=== PATIENT | male | born 1945 | race Caucasian/White ===

== ENCOUNTER → 2020-06-08 10:35 | Outpatient (BNVA) | payer MEDICARE, OTHER, SELFPAY | PROVIDERS: PCP Internal Medicine; Referring Provider Internal Medicine; Visit Provider Nurse Practitioner Family | DX: G90.521 Complex regional pain syndrome I of right lower limb (principal) | CPT/HCPCS: 99212 ==

== ENCOUNTER 2023-05-30 07:48 | Outpatient (REF) | payer MEDICARE, OTHER, SELFPAY ==
[2023-05-30 07:55] LABS: MANUAL DIFF FLAG NO
[2023-05-30 08:22] LABS: Basophils Percent Auto 0.5 % (0-2); Eosinophils Absolute Auto 0.2 X10*3/uL (0.0-0.4); Eosinophils Percent Auto 2.1 % (0-4); Hematocrit 35.6 % (42.0-52.0); Hemoglobin 11.6 g/dl (14.0-18.0); Imm Gran Abs Auto 0.04 X10*3/uL (0.00-0.03); Imm Gran Pct Auto 0.5 % (0.0-0.4); Lymphocytes Absolute Auto 2.4 X10*3/uL (1.2-4.9); Lymphocytes Percent Auto 27.4 % (20-40); Mean Corpuscular HGB Conc 32.6 g/dl (31.0-36.0); Mean Corpuscular Hemoglobin 29.7 pg (27.0-33.0); Mean Corpuscular Volume 91.3 fL (80.0-98.0); Mean Platelet Volume 10.6 fL (9.4-12.4); Monocytes Absolute Auto 0.7 X10*3/uL (0.1-1.2); Monocytes Percent Auto 8.2 % (2-11); Neutrophils Absolute Auto 5.4 x10*3/uL (2.0-8.3); Neutrophils Percent Auto 61.3 % (45-73); Platelet Count 206 X10*3/uL (160-400); Red Cell Distribution Width 14.3 % (11.0-16.0); White Blood Count 8.8 X10*3/uL (4.8-10.8)
[2023-05-30 08:32] LABS: Estimated Average Glucose 209 mg/dL; Hemoglobin A1c % 8.9 % (<6.0)
[2023-05-30 09:00] LABS: Alanine Aminotransferase 14 U/L (0-40); Albumin Level 3.9 g/dL (3.5-5.0); Alkaline Phosphatase 65 U/L (39-117); Anion Gap 16 (12-20); Aspartate Amino Transferase 16 U/L (5-37); Bilirubin Total 0.6 mg/dL (0.0-1.0); Blood Urea Nitrogen 16 mg/dL (9-16); Calcium 9.7 mg/dL (8.4-10.2); Carbon Dioxide 27 mmol/L (22-29); Chloride 99 mmol/L (96-108); Cholesterol 191 mg/dL (<200); Estimated Glomerular Filt Rate > 60; Glucose Fasting 295 mg/dL (60-99); HDL Cholesterol 31 mg/dL (>40); Sodium 138 mmol/L (135-145); Total Protein 6.9 g/dL (6.5-8.0); Triglycerides 797 mg/dL (<150); Uric Acid 2.9 mg/dL (3.4-7.0)
[2023-05-30 09:07] LABS: Thyroid Stimulating Hormone 1.94 uIU/mL (0.32-4.0); Vitamin D 25-OH Total 27.5 ng/mL (>30)
[2023-05-30 09:15] LABS: Vitamin B12 258 pg/mL (200-900)
[2023-05-30 09:56] LABS: Folate 5.1 ng/mL (> or = 4.0)
[2023-06-02 05:13] LABS: TS Negative Control Passed; TS Panel A 0; TS Panel B 0; TS Positive Control Passed; TSpotTB Negative (Negative)
== END 2023-05-30 07:49 | disposition home or self-care (01) ==
LOC: HO.HSH4W 07:48
PROVIDERS: Visit Provider Internal Medicine
DX: E11.22 Type 2 diabetes mellitus with diabetic chronic kidney disease (principal); N18.9 Chronic kidney disease, unspecified; F32.A Depression, unspecified; E55.9 Vitamin D deficiency, unspecified
CPT/HCPCS: 36415; 80053; 80061; 82306; 82607; 82746; 83036; 84443; 84550; 85025; 86481

== ENCOUNTER 2023-06-06 06:49 | Outpatient (REF) | payer MEDICARE, OTHER, SELFPAY ==
[2023-06-06 07:33] LABS: Cholesterol 198 mg/dL (<200); HDL Cholesterol 47 mg/dL (>40); LDL Cholesterol Calculated 127 mg/dL (<100); Triglycerides 121 mg/dL (<150)
== END 2023-06-06 06:50 | disposition home or self-care (01) ==
LOC: HO.HSH4W 06:49
PROVIDERS: Visit Provider Internal Medicine
DX: E11.9 Type 2 diabetes mellitus without complications (principal); E78.5 Hyperlipidemia, unspecified
CPT/HCPCS: 36415; 80061

== ENCOUNTER 2023-06-25 13:55 | Outpatient (REF) | payer MEDICARE, OTHER, SELFPAY ==
[2023-06-25 13:59] LABS: MANUAL DIFF FLAG NO
[2023-06-25 14:04] LABS: Basophils Percent Auto 0.3 % (0-2); Eosinophils Absolute Auto 0.1 X10*3/uL (0.0-0.4); Eosinophils Percent Auto 1.5 % (0-4); Hematocrit 38.8 % (42.0-52.0); Hemoglobin 12.8 g/dl (14.0-18.0); Imm Gran Abs Auto 0.02 X10*3/uL (0.00-0.03); Imm Gran Pct Auto 0.2 % (0.0-0.4); Lymphocytes Absolute Auto 2.2 X10*3/uL (1.2-4.9); Lymphocytes Percent Auto 24.4 % (20-40); Mean Corpuscular Hemoglobin 29.1 pg (27.0-33.0); Mean Corpuscular Volume 88.2 fL (80.0-98.0); Mean Platelet Volume 11.1 fL (9.4-12.4); Monocytes Absolute Auto 0.6 X10*3/uL (0.1-1.2); Monocytes Percent Auto 6.3 % (2-11); Neutrophils Absolute Auto 6.1 x10*3/uL (2.0-8.3); Neutrophils Percent Auto 67.3 % (45-73); Platelet Count 212 X10*3/uL (160-400); Red Cell Distribution Width 13.7 % (11.0-16.0); White Blood Count 9.1 X10*3/uL (4.8-10.8)
== END 2023-06-25 13:56 | disposition home or self-care (01) ==
LOC: HO.HSH4W 13:55
PROVIDERS: Visit Provider Internal Medicine
DX: J02.9 Acute pharyngitis, unspecified (principal); D64.9 Anemia, unspecified
CPT/HCPCS: 36415; 85025; 87070

== ENCOUNTER 2023-06-26 06:24 | Outpatient (REF) | payer MEDICARE, OTHER, SELFPAY | END 2023-06-26 06:25 | disposition home or self-care (01) | LOC: HO.HSH4W 06:24 | PROVIDERS: Visit Provider Internal Medicine | DX: J02.9 Acute pharyngitis, unspecified (principal) | CPT/HCPCS: 87651 ==

== ENCOUNTER 2023-06-27 10:06 | Outpatient (REF) | payer MEDICARE, OTHER, SELFPAY | END 2023-06-27 10:07 | disposition home or self-care (01) | LOC: HO.HSH4W 10:06 | PROVIDERS: Visit Provider Internal Medicine | DX: J02.9 Acute pharyngitis, unspecified (principal); D64.9 Anemia, unspecified | CPT/HCPCS: 36415; 80053; 85025 ==

== ENCOUNTER 2023-06-28 05:28 | Outpatient (REF) | payer MEDICARE, OTHER, SELFPAY | END 2023-06-28 05:29 | disposition home or self-care (01) | LOC: HO.HSH4W 05:28 | PROVIDERS: Visit Provider Internal Medicine | DX: J02.9 Acute pharyngitis, unspecified (principal) | CPT/HCPCS: 36415; 85652; 86308 ==

== ENCOUNTER 2023-07-04 11:33 | Outpatient (REF) | payer MEDICARE, OTHER, SELFPAY ==
[2023-07-04 11:36] LABS: MANUAL DIFF FLAG NO
[2023-07-04 11:55] LABS: Basophils Absolute Auto 0.1 X10*3/uL (0.0-0.2); Basophils Percent Auto 0.5 % (0-2); Eosinophils Absolute Auto 0.1 X10*3/uL (0.0-0.4); Eosinophils Percent Auto 0.6 % (0-4); Hematocrit 40.7 % (42.0-52.0); Hemoglobin 13.3 g/dl (14.0-18.0); Imm Gran Abs Auto 0.13 X10*3/uL (0.00-0.03); Lymphocytes Absolute Auto 3.4 X10*3/uL (1.2-4.9); Lymphocytes Percent Auto 26.4 % (20-40); Mean Corpuscular HGB Conc 32.7 g/dl (31.0-36.0); Mean Corpuscular Hemoglobin 29.2 pg (27.0-33.0); Mean Corpuscular Volume 89.3 fL (80.0-98.0); Mean Platelet Volume 11.4 fL (9.4-12.4); Monocytes Absolute Auto 1.2 X10*3/uL (0.1-1.2); Monocytes Percent Auto 9.1 % (2-11); Neutrophils Absolute Auto 8.1 x10*3/uL (2.0-8.3); Neutrophils Percent Auto 62.4 % (45-73); Platelet Count 310 X10*3/uL (160-400); Red Blood Count 4.56 X10*6/uL (4.60-5.80); Red Cell Distribution Width 13.6 % (11.0-16.0); White Blood Count 12.9 X10*3/uL (4.8-10.8)
[2023-07-04 12:21] LABS: Erythrocyte Sedimentation Rate 83 MM/HR (0-15)
[2023-07-05 13:11] LABS: C Reactive Protein 11.23 mg/dL (< or = 0.50)
== END 2023-07-04 11:34 | disposition home or self-care (01) ==
LOC: HO.HSH4W 11:33
PROVIDERS: Visit Provider Internal Medicine
DX: M54.2 Cervicalgia (principal); M79.10 Myalgia, unspecified site; J02.9 Acute pharyngitis, unspecified
CPT/HCPCS: 36415; 82550; 85025; 85652; 86140

== ENCOUNTER 2023-07-10 05:01 | Outpatient (REF) | payer MEDICARE, OTHER, SELFPAY ==
[2023-07-10 06:39] LABS: INTERNATIONAL NORM RATIO 0.9 (0.9-1.1); Prothrombin Time 11.3 SEC (11.1-13.3)
[2023-07-10 06:42] LABS: Partial Thromboplastin Time 36.3 SEC (26.0-36.4)
[2023-07-10 06:50] LABS: Prostate Specific Antigen 1.17 ng/mL (<0.05-4.0)
[2023-07-15 08:19] LABS: Methylmalonic Acid 152 nmol/L (87-318)
[2023-07-15 18:13] LABS: Homocysteine 14.9 umol/L (<11.4)
== END 2023-07-10 05:02 | disposition home or self-care (01) ==
LOC: HO.HSH4W 05:01
PROVIDERS: Visit Provider Internal Medicine
DX: R97.20 Elevated prostate specific antigen [PSA] (principal); K76.9 Liver disease, unspecified; E53.8 Deficiency of other specified B group vitamins; Z12.5 Encounter for screening for malignant neoplasm of prostate
CPT/HCPCS: 36415; 83090; 83921; 84153; 85610; 85730

== ENCOUNTER 2024-01-01 06:58 | Outpatient (REF) | payer MEDICARE, OTHER, SELFPAY ==
[2024-01-01 07:06] LABS: MANUAL DIFF FLAG NO
[2024-01-01 07:35] LABS: Basophils Percent Auto 0.4 % (0-2); Eosinophils Absolute Auto 0.1 X10*3/uL (0.0-0.4); Eosinophils Percent Auto 1.4 % (0-4); Hematocrit 37.9 % (42.0-52.0); Hemoglobin 12.8 g/dl (14.0-18.0); Imm Gran Abs Auto 0.05 X10*3/uL (0.00-0.03); Imm Gran Pct Auto 0.5 % (0.0-0.4); Lymphocytes Absolute Auto 2.8 X10*3/uL (1.2-4.9); Lymphocytes Percent Auto 28.5 % (20-40); Mean Corpuscular HGB Conc 33.8 g/dl (31.0-36.0); Mean Corpuscular Hemoglobin 30.6 pg (27.0-33.0); Mean Corpuscular Volume 90.7 fL (80.0-98.0); Mean Platelet Volume 11.2 fL (9.4-12.4); Monocytes Absolute Auto 0.8 X10*3/uL (0.1-1.2); Monocytes Percent Auto 7.7 % (2-11); Neutrophils Percent Auto 61.5 % (45-73); Platelet Count 201 X10*3/uL (160-400); Red Blood Count 4.18 X10*6/uL (4.60-5.80); Red Cell Distribution Width 14.4 % (11.0-16.0); White Blood Count 9.8 X10*3/uL (4.8-10.8)
[2024-01-01 07:49] LABS: Estimated Average Glucose 200 mg/dL; Hemoglobin A1c % 8.6 % (<6.0)
[2024-01-01 07:57] LABS: Alanine Aminotransferase 11 U/L (0-40); Alkaline Phosphatase 91 U/L (39-117); Anion Gap 16 (12-20); Aspartate Amino Transferase 14 U/L (5-37); Bilirubin Total 0.3 mg/dL (0.0-1.0); Blood Urea Nitrogen 30 mg/dL (9-16); Calcium 10.1 mg/dL (8.4-10.2); Carbon Dioxide 23 mmol/L (22-29); Chloride 105 mmol/L (96-108); Estimated Glomerular Filt Rate > 60; Glucose Random 200 mg/dL (60-115); Iron 50 mcg/dL (45-160); Percent Iron Saturation 16 % (15-50); Potassium 4.9 mmol/L (3.3-5.1); Sodium 139 mmol/L (135-145); Total Iron Binding Capacity 305 mcg/dL (228-428); Total Protein 6.8 g/dL (6.5-8.0); Unsaturated Iron Binding 255 ug/dL
[2024-01-01 08:14] LABS: Ferritin 58 ng/mL (20-250)
[2024-01-01 08:25] LABS: Folate 10.7 ng/mL (> or = 4.0); Vitamin B12 353 pg/mL (200-900)
[2024-01-06 23:19] LABS: PES - Abn Protein Band 1 <0.2 g/dL (NONE DETECTED); Prot Elec - Albumin 3.7 g/dL (3.8-4.8); Prot Elec - Alpha1 0.3 g/dL (0.2-0.3); Prot Elec - Alpha2 0.9 g/dL (0.5-0.9); Prot Elec - Beta 1 0.4 g/dL (0.4-0.6); Prot Elec - Beta 2 0.4 g/dL (0.2-0.5); Prot Elec - Gamma 0.6 g/dL (0.8-1.7); Prot Elec - Total Protein 6.3 g/dL (6.1-8.1)
== END 2024-01-01 06:59 | disposition home or self-care (01) ==
LOC: HO.HSH4W 06:58
PROVIDERS: Visit Provider Internal Medicine
DX: D64.9 Anemia, unspecified (principal); E11.9 Type 2 diabetes mellitus without complications; D47.2 Monoclonal gammopathy
CPT/HCPCS: 36415; 80053; 82607; 82728; 82746; 83036; 83540; 84165; 85025

== ENCOUNTER 2024-01-13 06:59 | Outpatient (REF) | payer MEDICARE, OTHER, SELFPAY ==
[2024-01-13 08:02] LABS: Uric Acid 4.3 mg/dL (3.4-7.0)
[2024-01-13 08:16] LABS: Thyroid Stimulating Hormone 0.98 uIU/mL (0.32-4.0)
[2024-01-16 10:09] LABS: IgA 258 mg/dL (70-320); IgG 569 mg/dL (600-1540); IgM 31 mg/dL (50-300)
== END 2024-01-13 07:00 | disposition home or self-care (01) ==
LOC: HO.HSH4W 06:59
PROVIDERS: Visit Provider Internal Medicine
DX: M25.50 Pain in unspecified joint (principal); R63.4 Abnormal weight loss; D47.2 Monoclonal gammopathy
CPT/HCPCS: 36415; 82784; 84443; 84550; 86334

== ENCOUNTER 2024-02-03 08:29 | Outpatient (REF) | payer MEDICARE, OTHER, SELFPAY ==
[2024-02-03 08:32] LABS: MANUAL DIFF FLAG NO
[2024-02-03 08:56] LABS: Basophils Absolute Auto 0.1 X10*3/uL (0.0-0.2); Basophils Percent Auto 0.5 % (0-2); Eosinophils Absolute Auto 0.2 X10*3/uL (0.0-0.4); Eosinophils Percent Auto 1.8 % (0-4); Hematocrit 37.6 % (42.0-52.0); Hemoglobin 12.9 g/dl (14.0-18.0); Imm Gran Abs Auto 0.03 X10*3/uL (0.00-0.03); Imm Gran Pct Auto 0.3 % (0.0-0.4); Lymphocytes Absolute Auto 3.5 X10*3/uL (1.2-4.9); Lymphocytes Percent Auto 36.4 % (20-40); Mean Corpuscular HGB Conc 34.3 g/dl (31.0-36.0); Mean Corpuscular Hemoglobin 30.6 pg (27.0-33.0); Mean Corpuscular Volume 89.3 fL (80.0-98.0); Mean Platelet Volume 11.6 fL (9.4-12.4); Monocytes Absolute Auto 0.8 X10*3/uL (0.1-1.2); Monocytes Percent Auto 8.5 % (2-11); Neutrophils Percent Auto 52.5 % (45-73); Platelet Count 215 X10*3/uL (160-400); Red Blood Count 4.21 X10*6/uL (4.60-5.80); Red Cell Distribution Width 13.7 % (11.0-16.0); White Blood Count 9.6 X10*3/uL (4.8-10.8)
== END 2024-02-03 08:30 | disposition home or self-care (01) ==
LOC: HO.HSH4W 08:29
PROVIDERS: Visit Provider Nurse Practitioner
DX: E11.9 Type 2 diabetes mellitus without complications (principal); M79.605 Pain in left leg
CPT/HCPCS: 36415; 85025

== ENCOUNTER 2024-08-27 11:43 | Outpatient (REF) | payer MEDICARE, OTHER, SELFPAY ==
[2024-08-27 13:21] LABS: Adenovirus F 40/41 Not Detected (Not Detect.); Astrovirus Not Detected (Not Detect.); Campylobacter Not Detected (Not Detect.); Cryptosporidium Not Detected (Not Detect.); Cyclospora cayetanensis Not Detected (Not Detect.); E. coli EAEC Not Detected (Not Detect.); E. coli EPEC Not Detected (Not Detect.); E. coli ETEC Not Detected (Not Detect.); E. coli STEC Not Detected (Not Detect.); Entamoeba histolytica Not Detected (Not Detect.); Giardia lamblia Not Detected (Not Detect.); Plesiomonas shigelloides Not Detected (Not Detect.); Rotavirus A Not Detected (Not Detect.); Salmonella Not Detected (Not Detect.); Sapovirus Not Detected (Not Detect.); Shigella sp./EIEC Not Detected (Not Detect.); Vibrio Not Detected (Not Detect.); Vibrio Cholerae Not Detected (Not Detect.); Yersinia enterocolitica Not Detected (Not Detect.)
[2024-08-27 13:32] LABS: Norovirus GI/GII Detected (Not Detect.)
--- OUTSIDE RECORDS SUMMARY | 2024-08-27 14:25 | XMS_ITS | Clinical Summary ---
Author Organization [facility], Address [address] [place] [address] [place] [address] Phone Care Team Providers Care Commercial T[employer] Service Technician Name Role Phone Jeanne Matias MD Primary Care Provider [phone] Allergies No known active allergies Medications allopurinol (ZYLOPRIM) 300 MG tablet Take 300 mg by mouth daily 06/08/2020 Active amLODIPine (NORVASC) 5 MG tablet Take 5 mg by mouth daily 05/30/2020 Active atenolol (TENORMIN) 100 MG tablet Take 100 mg by mouth daily 05/30/2020 Active Crestor 10 MG tablet Take 10 mg by mouth as directed 06/06/2020 Active oxyCODONE-aceta minophen (PERCOCET) 5-325 MG per tablet TAKE 2 TABLETS BY MOUTH EVERY DAY NEEDED FOR PAIN 06/24/2020 Active FLUoxetine (PROzac) 60 MG tablet Take 60 mg by mouth 1 (one) time each day in the morning 06/08/2020 Active gabapentin (NEURONTIN) 600 MG tablet TAKE 1 TABLET BY MOUTH AT 8AM, 1 TABLET AT 3PM AND 1 & 1/2 TABLETS AT 11PM 06/18/2020 Active lisinopril (PRINIVIL,ZESTR IL) 40 MG tablet Take 40 mg by mouth daily 04/26/2020 Active metFORMIN (GLUCOPHAGE) 1000 MG tablet Take 1,000 mg by mouth as directed 04/25/2020 Active omeprazole (PriLOSEC) [address] capsule Take 20 mg by mouth 1 (one) time each day 04/26/2020 Active fenofibrate (TRICOR) 54 MG tablet 12/09/2020 Active Active Problems Problem Noted Date Diagnosed Date Type 2 diabetes mellitus with diabetic nephropat hy 07/15/2020 Proteinuria 07/15/2020 Diabetes mellitus 07/14/2020 Gastric reflux 07/14/2020 Gout 07/14/2020 Essential hypertension 07/14/2020 Hypertriglyceridemia 07/14/2020 Hypogonadism 07/14/2020 Stage 3a chronic kidney disease Immunizations Name Administration Dates Next Due Influenza Split High Dose Preservative Free IM 1 Family History Medical History Relation Comments Hypertension Brother Diabetes Father Stroke Father Hypertension Mother Relation Status Comments Brother Father Mother Social History Tobacco Use Types Packs/Day Years Used Date Smoking Tobacco: Former Alcohol Use Standard Drinks/Week Comments Not Currently 0 (1 standard drink = 0.6 oz pur e alcohol) Sex and Gender Information Value Date Recorded Sex Assigned at Not on file Legal Sex Male 12:37 PM EST Gender Identity Not on file Sexual Orientation Not on file Plan of Treatment Health Maintenance Due Date Last Done Comments Pneumococcal Vaccine: 65+ Ye ars (1 of 2 - PCV) 1951 Diabetes: Hemoglobin A1C 07/14/2020 Diabetes: Ophthalmology Exam 07/14/2020 Diabetes: Pedal Pulse Checked 07/14/2020 Diabetes: Sensory Foot Exam 07/14/2020 Diabetes: Visual Foot Exam 07/14/2020 Influenza Vaccine (#1) 2024 04/18/2020 Hepatitis B Vaccine Aged Out No longe r eligible based on patient's age to complete this topic Insurance MEDICARE [facility] Care Teams Commercial Tire Service Technician Relationship Specialty Start Date End Date Jeanne Matias MD [address] [place] [address], [facility] [address] [place] [address] PCP - General Internal Medicine 06/29/20
--- OUTSIDE RECORDS SUMMARY | 2024-08-27 14:25 | XMS_ITS | Patient Health Record ---
Author Organization [facility] Address [address] [facility] [place] [address] Care Team Providers Care Acupuncture Physician Name Role Phone Kiersten Matias MD Primary Care Provider Reynold Randall Unavailable [phone] Allergies No Known Allergies Reason For Referral No Information Medications Medication SIG (Take, Route, Frequency, Duration) Notes Start Date End Date Status Crestor 10 MG 1 tablet Orally Once a day for 30 day(s) Active Gabapentin Active Crestor 10 MG 1 tablet Orally Once a day Active Omeprazole 20 MG 1 capsule 30 minutes before morning meal Orally Once a day for 30 day(s) Active oxyCODONE-Acetaminophen 5-325 MG 1 tablet as needed Orally every 6 hrs Active Lisinopril 10 MG 1 tablet Orally Once a day for 30 day(s) Active Metformin & Diet Manage Prod Active Potassium Not-Taking Ammonium Lactate 12 % 1 application to affected area Externally to feet Twice a day for 30 days Active Lantus 100 UNIT/ML 0.1 ml Subcutaneous Once a day for 30 day(s) Not-Taking hydroCHLOROthiazide 25 MG 1 tablet Orall y Once a day for 30 day(s) Unknown Extra Depth Orthopedic Shoes (1 Pair) with Customized Heat Molded Multidensity Innersoles (3 Pair) as directed Dx: NIDDM/Polyneuropathy (E11.42), Hammertoe Foot Deformity (M20.41,M20.42), Preulcerative Skin Lesion(s) (L85.1 05/02/2023 Active amLODIPine Besylate 5 MG 1 tablet Orally Once a day for 30 day(s) Active Insulin Unknown Fish Oil 1000 MG 1 capsule with a sharon l Orally Once a day for 30 day(s) Not-Taking Aspirin 325 MG 1 tablet Orally Once a day for 30 day(s) Unknown Allopurinol 300 MG 1 tablet Orally Once a day for 30 day(s) Active Gabapentin 600 MG as directed Orally three times a day Active Atenolol 100 MG 1 tablet Orally Once a day for 30 day(s) Active Prozac 20 Unknown Fluoxetine Active NovoLOG 100 UNIT/ML Subcutaneous Unknown Lisinopril 40 MG 1 tablet Orally Once a day for 30 day(s) Active Omeprazole 20 MG 1 capsule Orally Onc e a day for 30 day(s) Active Fenofibrate 54 MG 1 tablet with food Orally Once a day for 30 day(s) Active metFORMIN HCl 1000 MG 1 tablet with meal s Orally Twice a day for 30 day(s) Active Immunizations Vaccine Route Administration Date Status Comme nts COVID-19 Pfizer BioNTech Vaccine Unknown 01/12/2022 Administered 1st 08/29/20 2nd 09/19/20 3rd 06/04/21 Influenza Unknown 04/18/2015 Administered Influenza Unknown 04/24/2016 Administered Influenza Unknown 05/24/2022 Administered Pneumococcal Unknown 04/19/2014 Administered Social History Tobacco Use: Social History Observation Description Date Details (start date - stop date) Never Smoker NA - NA Tobacco Use/Smoking Question Answer Notes Are you a: nonsmoker Additional Findings: Tobacco Non-User Current no n-smoker Alcohol Screen Question Answer Notes Did you have a drink containing alcohol in the p ast year? No Points 0 Interpretation Negative Tobacco use other than smoking: Question Answer Notes Are you an other tobacco user? No Problems Problem Type SNOMED Code ICD Code Onset Dates Problem Status W/U Status Risk Notes Problem Acquired hammer toe of right foot (6172147628948745 ) Other hammer toe(s) (acquired), right foot (M20.41) Active confirmed Problem Acquired hammer toe of left foot (9213142283677184 ) Other hammer toe(s) (acquired), left foot (M20.42) Active confirmed Problem Polyneuropathy due to type 2 diabetes mellitus (682250028) Type 2 diabetes mellitus with diabetic polyneuropathy (E11.42) Active confirmed Plan Of Treatment Pending Test Test Name Order Date Hemoglobin A1c 04/19/2015 [id number] NAIL, 6 OR MORE 01/14/2015 17929-HLGXYVO NAIL, 6 OR MORE 06/01/2014 40014-ENVBSUX NAIL, 6 OR MORE 10/19/2014 63142-RDYLNOV NAIL, 6 OR MORE 04/19/2015 46893-EJBZPJA NAIL, 6 OR MORE 10/25/2015 96864-KSENLKR NAIL, 6 OR MORE 01/24/2016 39817-UYGYLBE NAIL, 6 OR MORE 04/24/2016 51502-GJOABRH NAIL, 6 OR MORE 10/16/2016 30635-TRBBMNJ NAIL, 6 OR MORE 05/29/2011 92890-CKIRJUS NAIL, 6 OR MORE 10/09/2011 63682-SYOBHOK NAIL, 6 OR MORE 01/31/2012 84883-ERPJXJC NAIL, 6 OR MORE 05/28/2012 13819-UWSDSZW NAIL, 6 OR MORE 10/08/2012 51555-YJWBHME NAIL, 6 OR MORE 01/07/2013 22990-SOXVJOH NAIL, 6 OR MORE 04/17/2013 27022-XFPZVMK NAIL, 6 OR MORE 10/06/2013 79061-OAIJXOM NAIL, 6 OR MORE 01/12/2014 48349-OTPPBFQ NAIL, 6 OR MORE 01/15/2017 84017-YMIFMPD NAIL, 6 OR MORE 04/16/2017 38677-SLDOQRN NAIL, 6 OR MORE 10/29/2017 54794-TOAZSXS NAIL, 6 OR MORE 11/11/2018 43256-QIRLGBO NAIL, 6 OR MORE 02/06/2022 76661-YQQGRQS NAIL, 6 OR MORE 05/25/2022 69341-FBRIIMJ NAIL, 6 OR MORE 08/10/2022 73467-TKZLDCN NAIL, 6 OR MORE 10/12/2022 13532-JDQUTOV NAIL, 6 OR MORE 01/04/2023 36081-QENSWGN NAIL, 6 OR MORE 05/02/2023 12125-Qtfltknr Plate 01/04/2023 89844-ZJBP SKIN LESIONS, OVER 4 05/02/20 23 45750-DSJO SKIN LESIONS, OVER 4 01/05/20 23 46255-NDFO SKIN LESIONS, OVER 4 10/13/19 23 89249-AUCE SKIN LESIONS, OVER 4 08/10/19 23 00962-PCYJ SKIN LESIONS, OVER 4 05/25/20 22 00856-VUFW SKIN LESIONS, OVER 4 02/07/20 22 39829-UUBH SKIN LESIONS, OVER 4 11/12/19 19 28716-NSVV SKIN LESIONS, OVER 4 10/30/19 18 14670-NKVF SKIN LESIONS, OVER 4 04/16/20 17 39229-LMDH SKIN LESIONS, OVER 4 01/13/20 14 54310-KVUK SKIN LESIONS, OVER 4 10/17/19 17 34294-DNNP SKIN LESIONS, OVER 4 01/16/20 17 78476-JSIL SKIN LESIONS, OVER 4 04/24/20 16 88772-ZOXP SKIN LESIONS, OVER 4 01/24/20 16 61095-UTEL SKIN LESIONS, OVER 4 10/25/19 16 07972-TSIP SKIN LESIONS, OVER 4 10/20/19 15 89048-MIKB SKIN LESIONS, OVER 4 06/01/20 14 12448-KPXD SKIN LESIONS, OVER 4 01/15/20 15 82108-MAKJ SKIN LESIONS, OVER 4 04/19/20 15 81498-CUWR SKIN LESIONS, 2 TO 4 10/07/19 14 46980-KIFV SKIN LESIONS, 2 TO 4 04/17/20 13 38803-IDCO SKIN LESIONS, 2 TO 4 01/08/20 13 14740-SUOA SKIN LESIONS, 2 TO 4 10/09/19 13 75628-SVZK SKIN LESIONS, 2 TO 4 05/28/20 12 21084-XALC SKIN LESIONS, 2 TO 4 01/31/20 12 Insurance Providers Payer Name Payer Address Payer Phone Subscriber Number Group Number Insured Name Patient Relationship to Insured Coverage Start Date Coverage End Date Medicare National [employer] [address] [place] [address] [id number] Aidan Sun Self - patient is the insured [facility] [address] [place] [address] [phone] [id number] Aidan Sun Self - patient is the insured Medical (General) History Medical History History ICD Code Arthritis back, hip, knee pain broken bones gall bladder problems Gout hypertension measles mumps chicken pox transfusions reflux Diabetic type ll Cholesterol Reflux ( GERD) Surgical History Surgery Date(Month/Year) cholecystectomy tonsillectomy ankle surgery hernia right knee surgery 08/14/2014 gall bladder Hospitalization History Reason Date(Month/Year) ER in [place] for back very painful - pt received a shot recently 07/2016 [facility] er; bakers cyst right knee 05/27
--- OUTSIDE RECORDS SUMMARY | 2024-08-27 14:26 | XMS_ITS ---
Author Organization [facility] Address [address] [place] [address] Care Team Providers Care Membership Sales Advisor Name Role Phone Kiersten Matias MD Primary Care Provider Reynold Randall Unavailable [phone] Allergies No Known Allergies REASON FOR VISIT At Risk Footcare, Toe Irritation Medications Medication SIG (Take, Route, Frequency, Duration) Notes Start Date End Date Status hydroCHLOROthiazide 25 MG 1 tablet Orall y Once a day for 30 day(s) Unknown Insulin Unknown Aspirin 325 MG 1 tablet Orally Once a day for 30 day(s) Unknown Prozac 20 Unknown NovoLOG 100 UNIT/ML Subcutaneous Unknown Fish Oil 1000 MG 1 capsule with a sharon l Orally Once a day for 30 day(s) Not-Taking oxyCODONE-Acetaminophen 5-325 MG 1 tablet as needed Orally every 6 hrs Active Potassium Not-Taking Ammonium Lactate 12 % 1 application to affected area Externally to feet Twice a day for 30 days Active Lantus 100 UNIT/ML 0.1 ml Subcutaneous Once a day for 30 day(s) Not-Taking Crestor 10 MG 1 tablet Orally Once a day for 30 day(s) Active Gabapentin Active Omeprazole 20 MG 1 capsule 30 minutes before morning meal Orally Once a day for 30 day(s) Active Lisinopril 10 MG 1 tablet Orally Once a day for 30 day(s) Active Metformin & Diet Manage Prod Active Crestor 10 MG 1 tablet Orally Once a day Active Lisinopril 40 MG 1 tablet Orally Once a day for 30 day(s) Active Omeprazole 20 MG 1 capsule Orally Onc e a day for 30 day(s) Active Fenofibrate 54 MG 1 tablet with food Orally Once a day for 30 day(s) Active metFORMIN HCl 1000 MG 1 tablet with meal s Orally Twice a day for 30 day(s) Active amLODIPine Besylate 5 MG 1 tablet Orally Once a day for 30 day(s) Active Allopurinol 300 MG 1 tablet Orally Once a day for 30 day(s) Active Gabapentin 600 MG as directed Orally three times a day Active Atenolol 100 MG 1 tablet Orally Once a day for 30 day(s) Active Fluoxetine Active Extra Depth Orthopedic Shoes (1 Pair) with Customized Heat Molded Multidensity Innersoles (3 Pair) as directed Dx: NIDDM/Polyneuropathy (E11.42), Hammertoe Foot Deformity (M20.41,M20.42), Preulcerative Skin Lesion(s) (L85.1 05/02/2023 Active Social History Tobacco Use: Social History Observation [...] Are you an other tobacco user? No Vital Signs Height 6 ft 2 in in 05/02/2023 Weight 255 lbs 05/02/2023 BMI 32.74 kg/m2 05/02/2023 Procedures Procedure Date Ordered Date Performed Result Body Sit e 60049-FKVGWQC NAIL, 6 OR MORE 05/02/2023 N/A 59105-ZSRZ SKIN LESIONS, OVER 4 05/02/2023 N/A Encounters Encounter Location Date Provider Diagnosis [facility] [address] [address] 05/02/2023 Reynold Rubin Type 2 diabetes mellitus with diabetic polyneuropathy E11.42 ; Tinea unguium B35.1 ; Other hammer toe(s) (acquired), right foot M20.41 and Other hammer toe(s) (acquired), left foot M20.42 Assessments Encounter Date Diagnosis (ICD Code) Assessment Notes Treatment Notes Treatment Clinical Notes Section Notes 05/02/2023 Type 2 diabetes mellitus with diabetic polyneuropathy (ICD-10 - E11.42) 05/02/2023 Tinea unguium (ICD-10 - B35.1) 05/02/2023 Other hammer toe(s) (acquired), right foot (ICD-10 - M20.41) Patient Educated with: DIABETIC FOOT CARE INSTRUCTIONS. pdf (DIABETIC FOOT CARE INSTRUCTIONS. pdf) 05/02/2023 Other hammer toe(s) (acquired), left foot (ICD-10 - M20.42) Plan Of Treatment Medication Medication Name Sig Start Date Stop Date Notes Extra Depth Orthopedic Shoes (1 Pair) with Customized Heat Molded Multidensity Innersoles (3 Pair) as directed Dx: NIDDM/Polyneuropathy (E11.42), Hammertoe Foot Deformity (M20.41,M20.42), Preulcerative Skin Lesion(s) (L85.1 05/02/2023 Treatment Notes Assessment Notes Other hammer toe(s) (acquired), right fo ot Patient Educated with: DIABETIC FOOT CARE INSTRUCTIONS.pdf (DIABETIC FOOT CARE INSTRUCTIONS.pdf) Pending Test Test Name Order Date 48330-LJQEWAE NAIL, 6 OR MORE 05/02/2023 69160-GCIV SKIN LESIONS, OVER 4 05/02/20 23 Next Appt Details Follow Up: prn, Reason: Procedure Notes * Category Sub-Category Detail Notes Debride Nail 6-10 Nail debridement Nail debridem ent performed extensively to reduce/remove overall nail length and girth, subungual debris, and necrotic tissue, by manual and electrical means with use of a nail nipper and/or dremel, to more viable healthy nail plate or bed tissue 6-10. Silver nitrate used for any petechial bleeding as necessary. Patient chooses, no pharmaceutical tx (64897) Keratoma Treatment Parring or Cutting o f Benign Hyperkeratotic Lesion(s) 60114 ( >4 Lesions) - The Benign hyperkeratotic lesions, as described above were pared, and/or cut utilizing a sterile #15 blade, tissue nippers, and/or dremel Progress Notes * Aidan BELTRAN KDOB: (77 yo M)Acc No.[id number]:05/02/2023 Progress Note Patient:?Aidan Beltran Provider:?Reynold Rubin DPM :1945???Age:77 Y???Sex:Male Franklyn e:05/02/2023 Address:[address], [place], [id number] Pcp:Kiersten Matias MD Subjective: * Chief Complaints: * ???At Risk FootcareToe Irrit ation * HPI: ???At Risk footcare:?Pt States Last PCP Visit:?Date?03/07/2023 ???Toe pain:?Location:?B/L feet.?Duration:?several years.?Course:?worse.?Aggrevated by:?shoes, any pressure.?Treatments:?change in shoes.? * ROS:?General/Constitutional:?Nausea?denies.?Vomiting?denies.?Hunger Thirst?denies.?Loss appetite?denies.?Chills?denies.?Fatigue?denies.?Fever?denies.?Night Sweats?denies.?Unexplained weight loss?denies.?Unexplained weight gain?denies.?HEENTM:?Dentures?denies.?Dizziness?denies.?Glasses/contacts?denies.?Retinopathy?de nies.?Blurred/double vision?denies.?TMJ?denies.?Discharge/drainage?denies.?Implants?denies.?Sore throat?denies.?Dental implants?denies.?Hard of hearing ?denies.?Difficulty chewing/swallowing/speaking?denies.?Nose bleeds?denies.?Sore mouth?denies.?Respiratory:?On Oxygen?denies.?Pneumonia/pleurisy?denies.?Bronchitis?denies.?Emphysema?denies.?C oughing?denies.?Cough blood?denies.?Shortness of breath?denies.?Wheezing?denies.?Cardiovascular:?Pacemaker?denies.?MVP?denies.?WPW?denies.?CHF?denies.?Heart attack?denies.?Septal defect?denies.?Rapid beat?denies.?Chest pain ?denies.?Atrial Fib.?denies.?Murmur/Palpitations?denies.?Gastrointestinal:?Hemorrhoids?denies.?Stomach/Abdominal pain?denies.?Dark blood stool?denies.?Irritable bowel ?denies.?Constipation?denies.?Diarrhea?denies.?Hematology:?Swelling?admits.?Clots?denies.?Varicose Veins?denies.?Bruising?denies.?Bleeding problem?denies.?Genitourinary:?Blood urine?denies.?Frequent/Painfu/urination/bladder control?denies.?Kidney stones?denies.?Infection (UTI)?denies.?Nephropathy?denies.?sex trans dis (STD)?denies.?Prostate?denies.?Musculoskeletal:?Hammertoes?admits.?Bunions?denies.?Back Pain?denies.?Muscle Cramps/ Resting?denies.?Muscle cramps / walking?denies.?Generalized aches and pains?denies.?Weakness?admits, that is generalized, that is moderate, bilateral lower extremities.?Integ.:?Monson?denies.?Scars?denies.?Corns/calluses?admits.?Ingrown nails?admits.?Painful nails?denies.?Open Sores?denies.?Rashes?denies.?Neurologic:?Difficulty sleeping?denies.?Brain disorder?denies.?Numbness?admits.?Balance trouble?admits.?Confusion?denies.?Fainting/blackouts?denies.?Tingling?admits, bilateral lower extremities.?Tremors?denies.? * Medical History:? * Surgical History:?cholecyste ctomy tonsillectomy ankle surgery hernia right knee surgery 08/14/2014gall bladder * Hospitalization/Major Diagno stic Procedure:?[facility] er; bakers cyst right knee 05/27/2014ER in [place] for back very painful - pt received a shot recently 07/2016 * Family History:?Mother: dece ased, diagnosed with Unspecified essential hypertension.?Father: , diagnosed with Diabetic - NIDDM, Unspecified cerebral artery occlusion with cerebral infarction.?Siblings: kidney/liver disease.? * Social History:?Tobacco Use:?Tobacco Use/Smoking?Are you a:?nonsmoker ?Additional Findings: Tobacco Non-User?Current non-smoker ?Tobacco use other than smoking?Are you an other tobacco user??No ???Drugs/Alcohol:?Drugs?Have you used drugs other than those for medical reasons in the past 12 months??No ?Alcohol Screen?Did you have a drink containing alcohol in the past year??No ?Points?0 ?Interpretation?Negative ???Miscellaneous:?Caffeine: yes, 1-2 cups per day. ?Children: yes, 4 sons. ?no Exercise. ?Marital status: . ?Occupation: retired. * Medications:?TakingamLODIPin e Besylate 5 MG Tablet 1 tablet Orally Once a dayAtenolol 100 MG Tablet 1 tablet Orally Once a dayFluoxetine Allopurinol 300 MG Tablet 1 tablet Orally Once a dayGabapentin 600 MG Capsule as directed Orally three times a dayFenofibrate 54 MG Tablet 1 tablet with food Orally Once a daymetFORMIN HCl 1000 MG Tablet 1 tablet with meals Orally Twice a dayLisinopril 40 MG Tablet 1 tablet Orally Once a dayOmeprazole 20 MG Capsule Delayed Release 1 capsule Orally Once a dayCrestor 10 MG Tablet 1 tablet Orally Once a dayCrestor 10 MG Tablet 1 tablet Orally Once a dayGabapentin Lisinopril 10 MG Tablet 1 tablet Orally Once a dayMetformin & Diet Manage Prod Omeprazole 20 MG Capsule Delayed Release 1 capsule 30 minutes before morning meal Orally Once a dayoxyCODONE-Acetaminophen 5-325 MG Tablet 1 tablet as needed Orally every 6 hrsAmmonium Lactate 12 % Cream 1 application to affected area Externally to feet Twice a dayTaking amLODIPine Besylate 5 MG Tablet 1 tablet Orally Once a dayTaking Atenolol 100 MG Tablet 1 tablet Orally Once a dayTaking Fluoxetine Taking Allopurinol 300 MG Tablet 1 tablet Orally Once a dayTaking Gabapentin 600 MG Capsule as directed Orally three times a dayTaking Fenofibrate 54 MG Tablet 1 tablet with food Orally Once a dayTaking metFORMIN HCl 1000 MG Tablet 1 tablet with meals Orally Twice a dayTaking Lisinopril 40 MG Tablet 1 tablet Orally Once a dayTaking Omeprazole 20 MG Capsule Delayed Release 1 capsule Orally Once a dayTaking Crestor 10 MG Tablet 1 tablet Orally Once a dayTaking Crestor 10 MG Tablet 1 tablet Orally Once a dayTaking Gabapentin Taking Lisinopril 10 MG Tablet 1 tablet Orally Once a dayTaking Metformin & Diet Manage Prod Taking Omeprazole 20 MG Capsule Delayed Release 1 capsule 30 minutes before morning meal Orally Once a dayTaking oxyCODONE-Acetaminophen 5-325 MG Tablet 1 tablet as needed Orally every 6 hrsTaking Ammonium Lactate 12 % Cream 1 application to affected area Externally to feet Twice a dayNot-Taking/PRNLantus 100 UNIT/ML Solution 0.1 ml Subcutaneous Once a dayPotassium Fish Oil 1000 MG Capsule 1 capsule with a meal Orally Once a dayNot-Taking/PRN Lantus 100 UNIT/ML Solution 0.1 ml Subcutaneous Once a dayNot-Taking/PRN Potassium Not-Taking/PRN Fish Oil 1000 MG Capsule 1 capsule with a meal Orally Once a dayUnknownAspirin 325 MG Tablet 1 tablet Orally Once a dayhydroCHLOROthiazide 25 MG Tablet 1 tablet Orally Once a dayInsulin Prozac 20 NovoLOG 100 UNIT/ML Solution Subcutaneous Medication List reviewed and reconciled with the patientUnknown Aspirin 325 MG Tablet 1 tablet Orally Once a dayUnknown hydroCHLOROthiazide 25 MG Tablet 1 tablet Orally Once a dayUnknown Insulin Unknown Prozac 20 Unknown NovoLOG 100 UNIT/ML Solution Subcutaneous Medication List reviewed and reconciled with the patient * Allergies:?N.K.D.A.yes[Aller gies Verified] Objective: * Vitals:?Ht: 6 ft 2 in, Wt: 2 55, BMI: 32.74, Shoe size: 12, BS: did not test, Wt- k.67 kg. * Examination: ???Neurological: ?SENSORY:? Neurological exam demonstrates, reduced light touch sensation, reduced sharp/dull pin prick discrimination , plantar aspects, B/L, 5.07 monofilament test performed at plantar aspects of 5 varied sites per foot shows sensation, reduced , B/L.?Nails: ?NAILS are:?Elongated, overgrown, dystrophic, lytic, greater than 3mm thick, discolored and friable with crumbly malodorous subungual debris, 1-5 B/L.?Dermatologic: ?SKIN FINDINGS:?Skin exam reveals Keratotic lesion(s) located at, Medial, IPJ, TA, Medial, IPJ, T5, Dorsal, DIPJ, T9, SUB MTH (s), 1, B/L , Heel, B/L.?Orthopedic: ?MUSCLE STRENGTH:? Generalized decrease in strength, B/L.?FOOT MORPHOLOGY:? No Charcot collapse/destruction noted at MTJ.?DIGITAL DEFORMITIES:?Digital contracture, PIPJ, 2-5 B/L, incompl-reducible to push-up test, no over, nor underlapping , with evidence of shoe producing skin irritation.?FOOTWEAR:?worn, non-supportive.?Vascular: ?DP PULSES:? 0/4, B/L.?PT PULSES:?0/4, B/L.?CAPILLARY FILL TIME:? delayed, all digits, B/L.?SKIN TEMPERTURE GRADIENT OF THE LOWER EXTERMITIES:? decreased, cool to cool, proximal to distal, B/L.?HAIR GROWTH/TEXTURE/ELASTICITY/TURGOR:? decreased, B/L.?PIGMENTATION:? rubrous, B/L.?EDEMA:? 3/4, non-pitting, without aching pain, B/L, Leg(s), Ankle(s), Feet.?Ophthalmology Referral: ?DIABETES EYE EXAM?Diabetic Retinopathy Screening:?No?General Examination: ?GENERAL APPEARANCE:?Reveals a pleasant, alert, well nourished, well- developed, well hydrated individual, who demonstrates proper attention to hygiene/body habitus, and is in no acute distress, Pt serves as own historian for office visit today.?ORIENTED:?person, place, and time.?FOOT EXAM:?Lower Extremity Neurological Exam performed:?Yes ?Footwear Evaluation?Footwear Evaluation performed:?Yes??? Assessment: * Assessment: 1.?Type 2 diabetes mellitus with diabetic polyneuropathy - E11.42 (Primary)?2.?Tinea unguium - B35.1?3.?Other hammer toe(s) (acquired), right foot - M20.41, Chronic problem, Worse (4),Rx Management (4)?4.?Other hammer toe(s) (acquired), left foot - M20.42, Chronic problem, Worse (4),Rx Management (4)? Plan: * Treatment: 2.?Other hammer toe(s) (acqu ired), right foot? Start Extra Depth Orthopedic Shoes (1 Pair) with Customized Heat Molded Multidensity Innersoles (3 Pair), as directed, Dx: NIDDM/Polyneuropathy (E11.42), Hammertoe Foot Deformity (M20.41,M20.42), Preulcerative Skin Lesion(s) (L85.1, 1, Refills 0.?? Notes: Patient Educated with: DIABETIC FOOT CARE INSTRUCTIONS.pdf (DIABETIC FOOT CARE INSTRUCTIONS.pdf)?? * Procedures:?Debride Nail 6-10:?Nail debridement?Nail debridement performed extensively to reduce/remove overall nail length and girth, subungual debris, and necrotic tissue, by manual and electrical means with use of a nail nipper and/or dremel, to more viable healthy nail plate or bed tissue 6-10. Silver nitrate used for any petechial bleeding as necessary. Patient chooses, no pharmaceutical tx (64217).?Keratoma Treatment:?Parring or Cutting of Benign Hyperkeratotic Lesion(s)?01925 ( >4 Lesions) - The Benign hyperkeratotic lesions, as described above were pared, and/or cut utilizing a sterile #15 blade, tissue nippers, and/or dremel.? * Procedure Codes:?33198 DEBRI DE NAIL, 6 OR MORE, Modifiers: XS 71419 TRIM SKIN LESIONS, OVER 4, Modifiers: XS * Preventive Medicine:? ??Counseling:?Discussion:?-14: Office or other outpatient visit for the evaluation and management of an established patient, which required a medically appropriate history and/or examination and MODERATE level of DECISION MAKING for: 1 OR MORE CHRONIC PROBLEM(S) THATS WORSENING, 2 STABLE CHRONIC PROBLEMS, A NEWLY DIAGNOSED PROBLEM WITH UNCERTAIN PROGNOSIS, AN ACUTE COMPLICATED INJURY WITH MULTIPLE TREATMENT OPTIONS, OR AN ACUTE PROBLEM WITH ACCOMPANYING SYSTEMIC SYMPTOMS, THAT POSE(S) A MODERATE RISK OF MORBIDITY. THIS CONDITION MAY ALSO INCLUDE RX DRUG MANAGEMENT, OR A DECISON FOR MINOR SURGERY. The visit on the day of the encounter encompassed interpreting the data and educating the patient as to the nature of their condition, treatment options available according to their individual PMH, meds, allergies, and overall health/living conditions, as well as any potential risks or complications that may occur from a failure to adhere to, and participate in, the recommended course of therapy. The discussion included a complete verbal, and/or written explanation of the examination results, any x-rays taken, the proposed diagnosis, and outline of the treatment plan. A schedule for future care needs was also explained. The patient verbalized an understanding of the instructions at this time and agreed to be an active participant in their treatment. If the patient should think of any questions or concerns after the visit, I have encouraged the patient to call the office.?Digital Surgery:?Digital surgery was discussed with the patient, We elected to try conservative treatment at the present time, due to the patients medical history and increased asssociated post-operative risks.?Digital Treatment:?HT- I explained to the patient the possible etiologies of Hammertoes, including genetics/foot type/shoegear/activity level/exercise routine and the risks/benefits of all the different treatment options for their pain including: No treatment at all, Rest, Ice, New/supportive/wider/deeper Shoegear, Digital Padding/Strapping/Taping/Bracing/Gel protective sleeves, Foot/Ankle AFO Bracing, Stretching exercises, Deep Tissue Massage, Arch support/shoe inserts with splay metatarsal padding, and Custom orthoses. I insisted that any digital devices be removed daily and not worn overnight for safety. The patient is to carefully examine the toes daily for any skin irritation while using any splinting or padding device. The advantages and disadvantages of each option were discussed and the patients questions re: shoegear, padding, custom vs prefabricated inserts, activity level, and consistency in home treatment regimens for optimal success were answered to their verbally confirmed satisfaction.?Shoe Gear Counseling:?SHOE Rx - The patient was counseled in great detail on their muscoloskeletal foot and toe deformities which coincided with the dermatological presentations visualized on exam. We discussed how their deformities put the integrity of their feet at risk for potential pedal complications which makes the accomidative diabetic shoes and cutomizable inserts medically necessary. We discussed the different shoe and insert treatment types and options, as well as the important advantages for adhering to regularly wearing these accomidative devices daily. The patient was made aware of the fact that a failure to abide by these recommedations may be deleterious to their foot health as they are able to prevent many pedal complications such as skin irritation, skin ulceration, infection, and even loss of toe/foot/leg/or life. Time was also spent with the patient dispensing and discussing proper diabetic footcare techniques including daily skin moisturization, daily foot inspection for any interruption in skin integrity including open lesions, or sign of infection such as redness/malodor/drainage/swelling. Also discussed and recommended were procedures regarding daily shoe inspection for the presence of internal foreign bodies as well as any visualized irregular shoe or insert wear. Patient questions re: shoes, inserts, and self foot inspections were answered to their satisfaction as the patient verbally confirmed a full understanding of the above information. A Rx for Extra Depth Orthopedic Shoes with 3 pair of custom heat-molded inserts was dispensed.? ??Screening/Special Tests:?Fall Risk?Assessment:?Performed ?Plan of Care:?Documented ?Screening:?Two or more falls without injury in the past year ?FALLS: Screening for Future Fall Risk?Have you had two or more falls in the past year??Yes ?Have you had any falls with injury in the past year??Yes * Follow Up:?prn * Images: * Sign off status: Completed true * Provider:?Reynold Rubin DPM Date:?2022 Generated for Katlyn mercado/Parth/Harleen on:?08/27/2024 02:25 PM EST History and Physical Notes * HPI (History of Present Illness) Category Sub-Category Detail Notes Category Not es Toe pain Location: B/L feet Duration: several years Course: worse Aggravated by: shoes, any pressure Treatments: change in shoes At Risk footcare Pt States Last PCP Visit: Date: 3 Examination Category Sub-Category Detail Notes Category Not es Neurological SENSORY: Neurological exa m demonstrates, reduced light touch sensation, reduced sharp/dull pin prick discrimination , plantar aspects, B/L, 5.07 monofilament test performed at plantar aspects of 5 varied sites per foot shows sensation, reduced , B/L Dermatologic SKIN FINDINGS: Skin exam reveal s Keratotic lesion(s) located at, Medial, IPJ, TA, Medial, IPJ, T5, Dorsal, DIPJ, T9, SUB MTH (s), 1, B/L , Heel, B/L Orthopedic FOOT MORPHOLOGY: No Charcot kvng apse/destruction noted at MTJ FOOTWEAR: worn, non-supportive DIGITAL DEFORMITIES: Digital contracture , PIPJ, 2-5 B/L, incompl-reducible to push-up test, no over, nor underlapping , with evidence of shoe producing skin irritation MUSCLE STRENGTH: Generalized decrease in strength, B/L General Examination GENERAL APPEARANCE: Reveals a pleasant, alert, well nourished, well-developed, well hydrated individual, who demonstrates proper attention to hygiene/body habitus, and is in no acute distress, Pt serves as own historian for office visit today FOOT EXAM: Lower Extremity Neurological Exa m performed:: Yes ORIENTED: person, place, and t [email or web address] Footwear Evaluation Footwear Evaluation performe d:: Yes Ophthalmology Referral DIABETES EYE EXAM Diabetic Retinopa thy Screening:: No Vascular DP PULSES (B): 0/4, B/L PT PULSES (B): 0/4, B/L CAPILLARY FILL TIME: delayed, all digits , B/L TEMPERTURE GRADIENT (C): decreased, cool to cool, proximal to distal, B/L TROPHIC CONDITION-TEXTURE/ELASTICITY/TURGOR/HAIR GROWTH (B): decreased, B/L EDEMA (C): 3/4, non-pitting, wi thout aching pain, B/L, Leg(s), Ankle(s), Feet PIGMENTATION: rubrous, B/L Nails NAILS are: Elongated, overg rown, dystrophic, lytic, greater than 3mm thick, discolored and friable with crumbly malodorous subungual debris, 1-5 B/L
--- OUTSIDE RECORDS SUMMARY | 2024-08-27 14:26 | XMS_ITS ---
Author Organization [facility] Address [address] [facility] [facility] [facility] [place] [address] Care Team Providers Care Barrel Leveler Name Role Phone Kiersten Matias MD Primary Care Provider Reynold Randall [phone] Calloway Encounters Encounter Location Date Provider Diagnosis [facility] [address] [address] 03/18/2023 Reynold Rubin Plan Of Treatment No Information Progress Notes * Aidan BELTRAN KDOB: (79 yo M)Acc No.[id number]:03/18/2023 Progress Note Patient:Aidan BERNAL Provider:?Reynold Rubin DPM :1945???Age:77 Y???Sex:Male Franklyn e:03/18/2023 Address:[address], [place] Pcp:Kiersten Matias MD Subjective: * Chief Complaints: * ???1. Dr Calloway. * Medical History:? Objective: * Vitals:? Assessment: Plan: * Treatment: * Images: * The named appointment provid er may or may not be the originator of this progress note, and it is not deemed complete until electronically signed by the appointment provider. Sign off status: Pending * Provider:?Reynold Rubin DPM Date:?2022 Generated for Printi ng/Faxing/eTransmitting on:?08/27/2024 02:25 PM EST
== END 2024-08-27 11:44 | disposition home or self-care (01) ==
LOC: HO.HSH4W 11:43
PROVIDERS: Visit Provider Internal Medicine
DX: R19.7 Diarrhea, unspecified (principal); R11.10 Vomiting, unspecified
CPT/HCPCS: 87507